=== PATIENT | female | born 1970 | race African-American/Black ===

== ENCOUNTER 2017-09-14 10:18 | Emergency (ER) | payer MEDICAID ==
[~2017-09-14] VITALS: Ht 157.5 cm; Wt 77.1 kg
[~2017-09-14 10:18] MED LIST: BENTYL10 MG ORAL; CIPRO500 MG PO; COLACE100 MG ORAL; FLAGYL500 MG ORAL; IBUPROFEN600 MG ORAL; NKM; TRAMADOL HCL50 MG ORAL; ZOFRAN4 M3 ORAL; ZOFRAN4 MG ORAL
[2017-09-14] MEDS ORDERED: HYDROCHLOROTH12.5 M2 ORAL (10:44)
[2017-09-14] MEDS ORDERED: PANTOPRAZOLE SO20 MG ORAL (10:44)
[2017-09-14] MEDS ORDERED: Mylanta II UD 30ml ORAL ONE (11:00)
[2017-09-14] MEDS ORDERED: Morphine Sulfate 4mg/ml Inj IVP ONE (11:00)
[2017-09-14] MEDS ORDERED: Dicyclomine HCl 10mg/5ml oral soln ORAL ONE (11:00)
[2017-09-14] MEDS ORDERED: Metoclopramide 10mg/2ml Inj IVP ONE (11:00)
[2017-09-14] MEDS ORDERED: Lidocaine 2% Visc 15ml soln ORAL ONE (11:00)
[2017-09-14] MEDS ORDERED: DiphenhydrAMINE 50mg/ml Inj IVP ONE (11:00)
[2017-09-14 11:22] LABS: MEAN CORPUSCULAR HEMOGLOBIN 33.8 PG (27.0-31.0); MEAN CORPUSCULAR HGB CONC 34.4 G/DL (32.0-36.0); MEAN CORPUSCULAR VOLUME 98 FL (80-99); MEAN PLATELET VOLUME 6.1 FL (6.5-10.1); PLATELET COUNT 324 K/UL (150-450); RED BLOOD COUNT 4.09 M/UL (4.20-5.40); RED CELL DISTRIBUTION WIDTH 11.7 % (11.6-14.8); WHITE BLOOD COUNT 20.1 K/UL (4.8-10.8)
[2017-09-14 11:22] LABS: APPEARANCE,URINE SLIGHTLY CLOUDY; KETONES,URINE 4+ (NEGATIVE); LEUKOCYTE ESTERASE ,URINE 1+ (NEGATIVE); NITRITE,URINE NEGATIVE (NEGATIVE); PH,URINE 6 (4.5-8.0); PROTEIN,URINE 3+ (NEGATIVE); UROBILINOGEN,URINE 1 MG/DL (0.0-1.0)
[2017-09-14 11:29] LABS: ICTOTEST NEGATIVE
[2017-09-14 11:44] LABS: ANION GAP 12 mmol/L (5-15); BAND NEUTROPHILS % (MANUAL) 0 % (0-8); BASOPHILS % (MANUAL) 0 % (0-2); CALCIUM 8.9 MG/DL (8.5-10.1); CARBON DIOXIDE 27 MMOL/L (21-32); CHLORIDE 96 MMOL/L (98-107); CREATININE 0.9 MG/DL (0.55-1.30); EOSINOPHILS % (MANUAL) 0 % (0-3); GLOMERULAR FILTRATION RATE > 60 mL/min (>60); LYMPHOCYTES % (MANUAL) 4 % (20-45); NEUTROPHILS % (MANUAL) 92 % (45-75); PLATELET ESTIMATE ADEQUATE; PLATELET MORPHOLOGY NORMAL; SODIUM 135 MMOL/L (136-145); TOTAL CELLS COUNTED 100
[2017-09-14 11:48] LABS: ALANINE AMINOTRANSFERASE 25 U/L (12-78); ASPARTATE AMINO TRANSFERASE 18 U/L (15-37); LIPASE 95 U/L (73-393); TOTAL PROTEIN 9.2 G/DL (6.4-8.2)
[2017-09-14 11:48] LABS: BACTERIA,URINE FEW /HPF; RBC,URINE 20-30 /HPF (0 - 2); SQUAMOUS EPITHELIAL CELL,UR MANY /LPF (NONE/OCC)
[2017-09-14 13:42] VITALS: BP 109/64
--- NOTE | 2017-09-14 14:06 | Emergency Room Report ---
History of Present Illness General Chief Complaint: Vomiting Source: Patient Present Illness HPI Patient presents with complaints of diffuse abdominal pain Nausea vomiting Patient reports that she was trying to see if the pain would get better over the past 7 days however has persisted Denies any obvious fevers Denies any chest pain or shortness of breath denies any dysuria frequency Patient reports that she has been getting diagnosed with IBS and has some blood work are ordered however she was not able to make it to the laboratory Patient denies any blood in the stool Patient has had previous appendectomy Cholecystectomy and hysterectomy Allergies: Coded Allergies: No Known Allergies (Verified , 11/10/11) Patient History Past Medical History: see triage record Pertinent Family History: none Reviewed Nursing Documentation: PMH: Agreed, PSxH: Agreed Nursing Documentation-PMH Hx Hypertension: Yes Hx Gastrointestinal Problems: Yes - IBS Review of Systems All Other Systems: negative except mentioned in HPI Physical Exam Vital Signs Date Time Temp Pulse Resp B/P (MAP) Pulse Ox O2 Delivery O2 Flow Rate FiO2 09/14/17 10:28 98.4 64 23 135/83 99 Room Air Sp02 EP Interpretation: reviewed, normal General Appearance: mild distress - Appeared uncomfortable Head: normocephalic, atraumatic Eyes: bilateral eye PERRL, bilateral eye EOMI ENT: hearing grossly normal, normal pharynx, TMs + canals normal, uvula midline Neck: full range of motion, supple, no meningismus, no bony tend Respiratory: lungs clear, normal breath sounds, no rhonchi, no respiratory distress, no retraction, no accessory muscle use Cardiovascular #1: normal peripheral pulses, regular rate, rhythm, no edema, no gallop, no JVD, no murmur Gastrointestinal: normal bowel sounds, non tender - Subjectively patient points diffusely however I cannot clinically localized pain,, soft, no mass, no organomegaly, non-distended, no guarding, no hernia, no pulsatile mass, no rebound Genitourinary: no CVA tenderness Musculoskeletal: normal inspection Neurologic: oriented x3, responsive, product line manager III-XII nml as tested, motor strength/ tone normal, sensory intact Psychiatric: mood/affect normal Skin: normal color, no rash, warm/dry, palpation normal Lymphatic: normal inspection, no adenopathy Medical Decision Making Diagnostic Impression: Primary Impression: Abdominal pain Additional Impression: Leukocytosis ER Course With the patient's history and examination, multiple differentials considered, including but not limited to , ectopic , ovarian torsion, gastritis, cholecystitis, pancreatitis, appendicitis Patient's test was negative At this time the white blood cell with significantly elevated Therefore patient had CT obtained No obvious pathology mild colitis Patient has done significantly better throughout her stay Given the laboratory findings and the patient's discomfort patient required inpatient care secondary to insurance purposes patient is transferred for continued eval Labs Test 09/14/17 11:00 09/14/17 11:10 Urine Color Yellow Urine Appearance Slightly cloudy Urine pH 6 (4.5-8.0) Urine Specific Ransom 1.025 (1.005-1.035) Urine Protein 3+ (NEGATIVE) Urine Glucose (UA) Negative (NEGATIVE) Urine Ketones 4+ (NEGATIVE) Urine Occult Blood 5+ (NEGATIVE) Urine Nitrite Negative (NEGATIVE) Urine Bilirubin 1+ (NEGATIVE) Urine Ictotest Negative Urine Urobilinogen 1 MG/DL (0.0-1.0) Urine Leukocyte Esterase 1+ (NEGATIVE) Urine RBC 20-30 /HPF (0 - 2) Urine WBC 2-4 /HPF (0 - 2) Urine Squamous Epithelial Cells Many /LPF (NONE/OCC) Urine Bacteria Few /HPF (NONE) Urine HCG, Qualitative Negative White Blood Count 20.1 K/UL (4.8-10.8) Red Blood Count 4.09 M/UL (4.20-5.40) Hemoglobin 13.8 G/DL (12.0-16.0) Hematocrit 40.2 % (37.0-47.0) Mean Corpuscular Volume 98 FL (80-99) Mean Corpuscular Hemoglobin 33.8 PG (27.0-31.0) Mean Corpuscular Hemoglobin Concent 34.4 G/DL (32.0-36.0) Red Cell Distribution Width 11.7 % (11.6-14.8) Platelet Count 324 K/UL (150-450) Mean Platelet Volume 6.1 FL (6.5-10.1) Neutrophils (%) (Auto) % (45.0-75.0) Lymphocytes (%) (Auto) % (20.0-45.0) Monocytes (%) (Auto) % (1.0-10.0) Eosinophils (%) (Auto) % (0.0-3.0) Basophils (%) (Auto) % (0.0-2.0) Differential Total Cells Counted 100 Neutrophils % (Manual) 92 % (45-75) Lymphocytes % (Manual) 4 % (20-45) Monocytes % (Manual) 4 % (1-10) Eosinophils % (Manual) 0 % (0-3) Basophils % (Manual) 0 % (0-2) Band Neutrophils 0 % (0-8) Platelet Estimate Adequate Platelet Morphology Normal Red Blood Cell Morphology Normal Sodium Level 135 MMOL/L (136-145) Potassium Level 3.0 MMOL/L (3.5-5.1) Chloride Level 96 MMOL/L (98-107) Carbon Dioxide Level 27 MMOL/L (21-32) Anion Gap 12 mmol/L (5-15) Blood Urea Nitrogen 16 mg/dL (7-18) Creatinine 0.9 MG/DL (0.55-1.30) Estimat Glomerular Filtration Rate > 60 mL/min (>60) Glucose Level 126 MG/DL (74-106) Calcium Level 8.9 MG/DL (8.5-10.1) Total Bilirubin 1.0 MG/DL (0.2-1.0) Aspartate Amino Transf (AST/SGOT) 18 U/L (15-37) Alanine Aminotransferase (ALT/SGPT) 25 U/L (12-78) Alkaline Phosphatase 97 U/L (46-116) Total Protein 9.2 G/DL (6.4-8.2) Albumin 4.5 G/DL (3.4-5.0) Globulin 4.7 g/dL Albumin/Globulin Ratio 1.0 (1.0-2.7) Lipase 95 U/L (73-393) CT/MRI/US Diagnostic Results CT/MRI/US Diagnostic Results : Impression CT abdomen pelvis: Pending final report, Preliminary report no acute disease Last Vital Signs Date Time Temp Pulse Resp B/P (MAP) Pulse Ox O2 Delivery O2 Flow Rate FiO2 09/14/17 13:42 98.7 72 18 109/64 100 Room Air Status: improved Disposition: XFER SHT-TRM HOSP Condition: Improved Referrals: [facility]ERR[facility] (PCP) LEONCIO DE LEON D.O. Sep 14, 2017 14:06
[2017-09-14 15:15] VITALS: BP 115/76
--- NOTE | 2017-09-15 08:47 | Diagnostic Imaging Report ---
Indication: Abdominal pain Technique: CT scan of the abdomen and pelvis was performed from the diaphragms to the symphysis pubis with intravenous contrast material only per specific request of the ordering physician.. 5 mm sections were generated. Axial, coronal, and sagittal images are presented. Dose: Total Dose Length Product - DLP [address] Dose Index - CTDIvol(s) 15.91 mGy. Automated exposure control was utilized for dose reduction. Comparison: 07/02/2013 Findings: The liver demonstrates mild dilatation of intrahepatic biliary ducts. The gallbladder surgically absent. Common bile duct is not dilated. The spleen is normal. Adrenal glands are unremarkable. The kidneys are normal. Aorta and inferior vena cava are normal caliber. Retroperitoneum is free of adenopathy. There is a clip in the right lower quadrant. The appendix is not identified. There is no inflammatory change in the right lower quadrant. The bladder is normal. Uterus is absent. There is 1.8 cm cyst in left ovary. Right ovary is not identified. Impression: Previous hysterectomy. Previous cholecystectomy. Probable absence of the appendix. Prominence of intrahepatic biliary ducts. This is likely secondary to the previous cholecystectomy. Common bile duct is not dilated. Left ovarian cyst measuring 1.8 cm. The above report is concordant with preliminary reading by [employer] . The CT scanner at [facility] is accredited by the [employer] and the scans are performed using protocols designed to limit radiation exposure to as low as reasonably achievable to attain images of sufficient resolution adequate for diagnostic evaluation.
== END 2017-09-14 15:15 | disposition short-term general hospital (02) ==
LOC: EMR 10:55 → CANBEDREQ 15:05 → EMR 15:15
DX: R10.9 Unspecified abdominal pain (principal); D72.829 Elevated white blood cell count, unspecified; R11.2 Nausea with vomiting, unspecified; Z90.49 Acquired absence of other specified parts of digestive tract; Z90.710 Acquired absence of both cervix and uterus; I10 Essential (primary) hypertension; K58.9 Irritable bowel syndrome, unspecified; N83.202 Unspecified ovarian cyst, left side
CPT/HCPCS: 36415; 74177; 80053; 81003; 81025; 83690; 85007; 85025; 96361; 96374; 96375; 99285; J1200; J2270; J2765; Q9967

== ENCOUNTER 2017-10-30 10:23 | Emergency (ER) | payer MEDICAID ==
[~2017-10-30] VITALS: Ht 157.5 cm; Wt 70.3 kg
[~2017-10-30 10:23] MED LIST changes: +HYDROCHLOROTH12.5 M2 ORAL; +PANTOPRAZOLE SO20 MG ORAL
[2017-10-30] MEDS ORDERED: Morphine Sulfate 4mg/ml Inj IVP ONE (12:15)
[2017-10-30 13:08] LABS: ANION GAP 11 mmol/L (5-15); BLOOD UREA NITROGEN 6 mg/dL (7-18); CALCIUM 9.6 MG/DL (8.5-10.1); CARBON DIOXIDE 26 MMOL/L (21-32); CHLORIDE 104 MMOL/L (98-107); CREATININE 0.7 MG/DL (0.55-1.30); SODIUM 141 MMOL/L (136-145)
[2017-10-30 13:23] LABS: HEMATOCRIT 35.1 % (37.0-47.0); HEMOGLOBIN 12.4 G/DL (12.0-16.0); MEAN CORPUSCULAR VOLUME 98 FL (80-99); PLATELET COUNT 286 K/UL (150-450); RED BLOOD COUNT 3.59 M/UL (4.20-5.40); RED CELL DISTRIBUTION WIDTH 12.3 % (11.6-14.8); WHITE BLOOD COUNT 9.6 K/UL (4.8-10.8)
[2017-10-30] MEDS ORDERED: ZOFRAN ODT4 MG ORAL (13:23)
[2017-10-30] MEDS ORDERED: BENTYL10 MG ORAL (13:23)
[2017-10-30 14:01] VITALS: BP 115/78
--- NOTE | 2017-10-31 08:19 | Emergency Room Report ---
History of Present Illness General Chief Complaint: Abdominal Pain Source: Patient Present Illness HPI Patient present with complaints of epigastric abdominal pain Patient reports that is the same pain that she's had on several occasions 05/01 pain Patient reports that she's had several bouts of vomiting Denies any lower abdominal pain denies any flank pain Denies any fevers or chills Patient provides history of recent followup with GI specialty Denies any recent travel Allergies: Coded Allergies: No Known Allergies (Verified , 11/10/11) Patient History Past Medical History: see triage record Pertinent Family History: none Last Menstrual Period: 5 years Reviewed Nursing Documentation: PMH: Agreed, PSxH: Agreed Nursing Documentation-PM Past Medical History: No History, Except For Hx Hypertension: Yes Hx Gastrointestinal Problems: Yes - IBS,GERD Review of Systems All Other Systems: negative except mentioned in HPI Physical Exam Vital Signs Date Time Temp Pulse Resp B/P (MAP) Pulse Ox O2 Delivery O2 Flow Rate FiO2 10/30/17 10:28 97.7 64 20 124/75 100 Room Air Sp02 EP Interpretation: reviewed, normal General Appearance: no apparent distress Head: normocephalic, atraumatic Eyes: bilateral eye PERRL, bilateral eye EOMI ENT: hearing grossly normal, normal pharynx, TMs + canals normal, uvula midline Neck: full range of motion, supple, no meningismus, no bony tend Respiratory: lungs clear, normal breath sounds, no rhonchi, no respiratory distress, no retraction, no accessory muscle use Cardiovascular #1: normal peripheral pulses, regular rate, rhythm, no edema, no gallop, no JVD, no murmur Gastrointestinal: normal bowel sounds, non tender - However subjectively points to the epigastric region, soft, no mass, no organomegaly, non-distended, no guarding, no hernia, no pulsatile mass, no rebound Genitourinary: no CVA tenderness Musculoskeletal: normal inspection Neurologic: oriented x3, responsive, seafood clerk III-XII nml as tested, motor strength/ tone normal, sensory intact Psychiatric: mood/affect normal Skin: normal color, no rash, warm/dry, palpation normal Lymphatic: normal inspection, no adenopathy Medical Decision Making Diagnostic Impression: Primary Impression: Abdominal pain ER Course With the patient's history and examination, multiple differentials considered, including but not limited to , ectopic , ovarian torsion, gastritis, cholecystitis, pancreatitis, appendicitis Baseline blood work are normal Patient has significant improvement with acute intervention There appears to be some chronicity to the acute presentation Patient had imaging done last presentation and one was not repeated today Patient reports close followup with GI specialty Labs Test 10/30/17 11:05 White Blood Count 9.6 K/UL (4.8-10.8) Red Blood Count 3.59 M/UL (4.20-5.40) Hemoglobin 12.4 G/DL (12.0-16.0) Hematocrit 35.1 % (37.0-47.0) Mean Corpuscular Volume 98 FL (80-99) Mean Corpuscular Hemoglobin 34.6 PG (27.0-31.0) Mean Corpuscular Hemoglobin Concent 35.4 G/DL (32.0-36.0) Red Cell Distribution Width 12.3 % (11.6-14.8) Platelet Count 286 K/UL (150-450) Mean Platelet Volume 5.8 FL (6.5-10.1) Neutrophils (%) (Auto) % (45.0-75.0) Lymphocytes (%) (Auto) % (20.0-45.0) Monocytes (%) (Auto) % (1.0-10.0) Eosinophils (%) (Auto) % (0.0-3.0) Basophils (%) (Auto) % (0.0-2.0) Differential Total Cells Counted 100 Neutrophils % (Manual) 86 % (45-75) Lymphocytes % (Manual) 5 % (20-45) Monocytes % (Manual) 8 % (1-10) Eosinophils % (Manual) 0 % (0-3) Basophils % (Manual) 0 % (0-2) Band Neutrophils 1 % (0-8) Platelet Estimate Adequate Platelet Morphology Normal Red Blood Cell Morphology Normal Urine HCG, Qualitative Negative Sodium Level 141 MMOL/L (136-145) Potassium Level 3.0 MMOL/L (3.5-5.1) Chloride Level 104 MMOL/L (98-107) Carbon Dioxide Level 26 MMOL/L (21-32) Anion Gap 11 mmol/L (5-15) Blood Urea Nitrogen 6 mg/dL (7-18) Creatinine 0.7 MG/DL (0.55-1.30) Estimat Glomerular Filtration Rate > 60 mL/min (>60) Glucose Level 134 MG/DL (74-106) Calcium Level 9.6 MG/DL (8.5-10.1) Last Vital Signs Date Time Temp Pulse Resp B/P (MAP) Pulse Ox O2 Delivery O2 Flow Rate FiO2 10/30/17 14:01 88 18 115/76 99 Room Air 10/30/17 14:01 98.0 Status: improved Disposition: HOME, SELF-CARE Condition: Improved Scripts Ondansetron Odt* (ZOFRAN ODT*) 4 Mg Tab.rapdis 4 MG ORAL Q6H Y for Nausea & Vomiting, #12 TAB 0 Refills Prov: LEONCIO DE LEON D.O. 10/30/17 Dicyclomine Hcl* (BENTYL*) 10 Mg Capsule 10 MG ORAL TID, #12 CAP Prov: LEONCIO DE LEON D.O. 10/30/17 Referrals: [facility] (PCP) Patient Instructions: Abdominal Pain, Adult Additional Instructions: Patient is provided with the discharge instructions notified to follow up with primary doctor in the next 2-3 days otherwise return to the er with any worsening symptoms. Please note that this report is being documented using [employer] technology. This can lead to erroneous entry secondary to incorrect interpretation by the dictating instrument. LEONCIO DE LEON D.O. Oct 31, 2017 08:19
== END 2017-10-30 14:04 | disposition home or self-care (01) ==
LOC: EMR 11:05
DX: R10.13 Epigastric pain (principal); I10 Essential (primary) hypertension; K21.9 Gastro-esophageal reflux disease without esophagitis
CPT/HCPCS: 36415; 80048; 81025; 85007; 85025; 96374; 96375; 99284; J2270; J2550

== ENCOUNTER 2017-11-30 22:13 | Emergency (ER) | payer MEDICAID ==
[~2017-11-30] VITALS: Ht 157.5 cm; Wt 68.0 kg
[~2017-11-30 22:13] MED LIST changes: +ZOFRAN ODT4 MG ORAL
[2017-11-30 22:35] VITALS: BP 145/94
[2017-11-30] MEDS ORDERED: Mylanta II UD 30ml ORAL ONE (22:45)
[2017-11-30] MEDS ORDERED: Pantoprazole Inj IV ONE (22:45)
[2017-11-30] MEDS ORDERED: Morphine Sulfate 4mg/ml Inj IVP ONE (22:45)
[2017-11-30 23:18] LABS: BASOPHILS % (AUTO) 0.7 % (0.0-2.0); HEMATOCRIT 45.5 % (37.0-47.0); HEMOGLOBIN 15.8 G/DL (12.0-16.0); LYMPHOCYTES % (AUTO) 14.2 % (20.0-45.0); MEAN CORPUSCULAR VOLUME 96 FL (80-99); MONOCYTES % (AUTO) 3.1 % (1.0-10.0); NEUTROPHILS % (AUTO) 82.1 % (45.0-75.0); PLATELET COUNT 354 K/UL (150-450); RED BLOOD COUNT 4.74 M/UL (4.20-5.40); RED CELL DISTRIBUTION WIDTH 12.2 % (11.6-14.8); WHITE BLOOD COUNT 9.8 K/UL (4.8-10.8)
[2017-11-30 23:35] VITALS: BP 140/91
[2017-11-30 23:37] LABS: ALANINE AMINOTRANSFERASE 23 U/L (12-78); ALBUMIN 4.6 G/DL (3.4-5.0); ALBUMIN/GLOBULIN RATIO 1.1 (1.0-2.7); ALKALINE PHOSPHATASE 64 U/L (46-116); ANION GAP 11 mmol/L (5-15); ASPARTATE AMINO TRANSFERASE 17 U/L (15-37); BILIRUBIN,TOTAL 0.9 MG/DL (0.2-1.0); BLOOD UREA NITROGEN 12 mg/dL (7-18); CALCIUM 10.2 MG/DL (8.5-10.1); CARBON DIOXIDE 32 MMOL/L (21-32); CHLORIDE 94 MMOL/L (98-107); CREATININE 0.9 MG/DL (0.55-1.30); SODIUM 136 MMOL/L (136-145)
[2017-11-30 23:51] LABS: POTASSIUM 2.3 MMOL/L (3.5-5.1)
[2017-12-01 00:17] LABS: BILIRUBIN, URINE NEGATIVE (NEGATIVE); GLUCOSE, URINE (UA) NEGATIVE (NEGATIVE); KETONES,URINE 4+ (NEGATIVE); LEUKOCYTE ESTERASE ,URINE 1+ (NEGATIVE); NITRITE,URINE NEGATIVE (NEGATIVE); PH,URINE 6.5 (4.5-8.0); PROTEIN,URINE 2+ (NEGATIVE); UROBILINOGEN,URINE 1 MG/DL (0.0-1.0)
[2017-12-01 00:33] LABS: APPEARANCE,URINE CLEAR; COLOR,URINE YELLOW
[2017-12-01 01:00] VITALS: BP 138/88
[2017-12-01] MEDS ORDERED: Morphine Sulfate 4mg/ml Inj IVP ONE (01:15)
[2017-12-01] MEDS ORDERED: HYDROCODON-ACE1 EA15 ORAL (01:41)
[2017-12-01] MEDS ORDERED: REGLAN10 M1 ORAL (01:41)
--- NOTE | 2017-12-01 01:41 | Emergency Room Report ---
History of Present Illness General Chief Complaint: Abdominal Pain Source: Patient Present Illness HPI Is a 47-year-old female with a history of severe gastritis/GERD. She was also recently diagnosed with ulcerative colitis. She presents with epigastric pain is been ongoing for last 2-3 days. Has nausea and vomiting. No diarrhea. Worse with eating. Similar symptom in the past. Pain is 9 out of 10. Vomiting is nonbloody and nonbilious. No fever or chills. Allergies: Coded Allergies: No Known Allergies (Verified , 11/10/11) Patient History Past Medical History: see triage record, old chart reviewed Past Surgical History: other Pertinent Family History: none Social History: Denies: smoking Last Menstrual Period: 5yrs ago, had hysterectomy Now: No Immunizations: other Reviewed Nursing Documentation: PMH: Agreed, PSxH: Agreed Nursing Documentation-PMH Hx Hypertension: Yes Hx Gastrointestinal Problems: Yes - IBS,GERD, ulcerative colitis Review of Systems Eye: Denies: eye pain, blurred vision ENT: Denies: ear pain, nose congestion, throat swelling Respiratory: Denies: cough, shortness of breath Cardiovascular: Denies: chest pain, palpitations Gastrointestinal: Reports: abdominal pain, nausea, vomiting, Denies: diarrhea Musculoskeletal: Denies: back pain, joint pain Skin: Denies: rash Neurological: Denies: headache, numbness Endocrine: Denies: increased thirst, increased urine Hematologic/Lymphatic: Denies: easy bruising All Other Systems: negative except mentioned in HPI Physical Exam Vital Signs Date Time Temp Pulse Resp B/P (MAP) Pulse Ox O2 Delivery O2 Flow Rate FiO2 11/30/17 22:23 99.3 61 18 145/94 98 Room Air 99.3 vitals normal Sp02 EP Interpretation: reviewed, normal General Appearance: well appearing, no apparent distress, alert Head: normocephalic, atraumatic Eyes: bilateral eye PERRL, bilateral eye EOMI ENT: hearing grossly normal, normal pharynx Neck: full range of motion, supple, no meningismus Respiratory: chest non-tender, lungs clear, normal breath sounds Cardiovascular #1: regular rate, rhythm, no murmur Gastrointestinal: normal bowel sounds, no mass, no organomegaly, no bruit, non- distended, tenderness - Epigastric Musculoskeletal: back normal, gait/station normal, normal range of motion Psychiatric: mood/affect normal Skin: warm/dry Medical Decision Making Diagnostic Impression: Primary Impression: Abdominal pain Additional Impressions: Dehydration Hypokalemia ER Course Patient with epigastric pain. This is similar to previous episodes. No evidence of acute abdomen. No evidence of obstruction. She felt better now. We'll discharge home. Lab Results Impression labs unremarkable Last Vital Signs Date Time Temp Pulse Resp B/P (MAP) Pulse Ox O2 Delivery O2 Flow Rate FiO2 12/01/17 01:22 99.3 11/30/17 23:35 66 16 140/91 99 Room Air Status: improved Disposition: HOME, SELF-CARE Condition: Stable Scripts Hydrocodone/Acetaminophen 5-325* (HYDROCODONE/ACETAMINOPHEN 5-325*) 1 Each Tablet 1 TAB ORAL Q6H Y for For Pain, #30 TAB 0 Refills Prov: KEYUR MEJIA M.D. 12/01/17 Metoclopramide Hcl* (REGLAN*) 10 Mg Tablet 10 MG ORAL THREE TIMES A DAY, #30 TAB Prov: KEYUR MEJIA M.D. 12/01/17 Referrals: [facility]REFERR[facility] (PCP) Patient Instructions: Abdominal Pain, Adult Additional Instructions: Follow-up with your doctor in 2-3 days. Return if symptom worsen. KEYUR MEJIA M.D. Dec 01, 2017 01:41
[2017-12-01 01:52] VITALS: BP 140/91
== END 2017-12-01 01:54 | disposition home or self-care (01) ==
LOC: EMR 22:41
DX: E86.0 Dehydration (principal); R10.13 Epigastric pain; E87.6 Hypokalemia; K58.9 Irritable bowel syndrome, unspecified; K21.9 Gastro-esophageal reflux disease without esophagitis; I10 Essential (primary) hypertension; Z90.710 Acquired absence of both cervix and uterus
CPT/HCPCS: 36415; 80053; 81003; 83690; 85025; 96361; 96374; 96375; 99284; C9113; J2270; J2405; J8499

== ENCOUNTER 2018-12-26 14:57 | Emergency (ER) | payer MEDICAID ==
[~2018-12-26] VITALS: Ht 157.5 cm; Wt 68.0 kg
[~2018-12-26 14:57] MED LIST changes: +HYDROCODON-ACE1 EA15 ORAL; +REGLAN10 M1 ORAL
--- NOTE | 2018-12-26 15:21 | NUR ---
ED Nurse Note: PT WALKED IN TO ER TODAY FROM HOME. AOX4. PT C/O LEFT LEG PAIN X 3 DAYS AGO. PT DENIES ANY RECENT TRAUMA OR INJURY. CIRCULATION AND SENSATION INTACT. FULL ROM OF EXTREMITY, CAP REFILL <3 SECONDS, 5/5 MUSCLE STRENGTH AND GAIT STEADY.
[2018-12-26 15:22] VITALS: BP 122/86
--- NOTE | 2018-12-26 15:26 | NUR ---
ED Nurse Note: XRAY AT BEDSIDE
--- NOTE | 2018-12-26 15:35 | Emergency Room Report ---
History of Present Illness General Chief Complaint: Pain Source: Patient, Medical Record Present Illness HPI 48-year-old female patient presents the ER complaining of left foot pain. Reports that the pain radiates up her leg to her calf and her lateral upper thigh. Reports sometimes the pain originates from her calf or her thigh. Denies back pain. Denies bowel or bladder incontinence. Denies history of diabetes. Denies history of blood clots. Denies recent travel or periods of immobilization. Denies history of cancer. Denies recent surgeries. Reports pain is worse at the beginning of the day when she first wakes up. Reports pain is on the bottom of her heel. Denies recent injury or accident. Denies redness or swelling. Denies other aggravating or relieving factors. States has not taking any pain medicine for relief of symptoms. Reports history of nerve injury in that foot from "a long time ago". Reports history of arthritis in her right knee and right shoulder, states has received cortisone shots in those joints. Allergies: Coded Allergies: No Known Allergies (Verified , 11/10/11) Patient History Past Medical History: see triage record Last Menstrual Period: N/A Now: No : 3 Para: 2 Reviewed Nursing Documentation: PMH: Agreed; PSxH: Agreed Nursing Documentation-PMH Hx Hypertension: Yes Hx Gastrointestinal Problems: Yes - IBS,GERD, ulcerative colitis Review of Systems All Other Systems: negative except mentioned in HPI Physical Exam Vital Signs Date Time Temp Pulse Resp B/P (MAP) Pulse Ox O2 Delivery O2 Flow Rate FiO2 12/26/18 15:01 98.8 76 18 119/87 96 Room Air Sp02 EP Interpretation: reviewed, normal General Appearance: well appearing, no apparent distress, alert, GCS 15, non- toxic Head: normocephalic, atraumatic Eyes: bilateral eye normal inspection, bilateral eye PERRL ENT: hearing grossly normal, normal pharynx, no angioedema, normal voice, uvula midline, moist mucus membranes Neck: full range of motion Respiratory: lungs clear, normal breath sounds, no rhonchi, no respiratory distress, no accessory muscle use, no wheezing, speaking full sentences Cardiovascular #1: regular rate, rhythm, no edema, normal capillary refill Cardiovascular #2: 2+ dorsalis pedis (R), 2+ dorsalis pedis (L) Musculoskeletal: back normal, digits/nails normal, gait/station normal, normal range of motion, non-tender, no calf tenderness, Tayla's Sign negative, other - No tenderness to palpation over bilateral malleoli, negative ankle drawer, NVI, refill less than 2 seconds Neurologic: alert, oriented x3, responsive, motor strength/tone normal, sensory intact Skin: no rash Medical Decision Making PA Attestation Dr. Leigh is my supervising Physician whom patient management has been discussed with. Diagnostic Impression: Primary Impression: Foot pain, left ER Course Pt. presents to the ED c/o left foot pain radiating up her leg times 3 days. Ddx considered but are not limited to sprain, strain, contusion, plantar fasciitis, peripheral neuropathy, DVT, fibromyalgia, cellulitis. Denies back pain, low suspicion for lumbar radiculopathy, does not require back x-ray at this time. Vital signs: are WNL, pt. is afebrile ER COURSE: Physical exam benign, subjective complaints of pain at left heel, left lateral calf distal to knee and left proximal thigh laterally however no tenderness to palpation, no ecchymosis, no erythema or edema, no palpable masses. Low suspicion for infection. Does not require antibiotics. Accu-Chek 112, low suspicion for diabetes, low suspicion for peripheral neuropathy. X-ray of the left foot shows no acute disease per the preliminary reading. Incidental finding of possible malleolus fracture. Patient denies ankle pain, no tenderness to palpation, low suspicion for fracture. Patient declined x-ray of ankle. Denies history of ankle fracture. Denies any recent injury or accident. Discuss results with the patient. Provided patient with copy of results. Instructed patient to followup with PCP and discuss results of report with patient, discuss need for further treatment and referral. Patient provided with a cane and El wrap the foot. Checked afterwards by me showing good alignment and neurovascularly intact. Venous duplex ultrasound of left lower extremity negative for DVT. Advised patient follow-up with primary care provider to discuss further treatment referral at that time. Reports pain symptoms improved while in the ER. Patient resting comfortably no acute distress, eating food. ER precautions given. Provided with contact information for locomotive firer and general surgeon. Follow-up with PCP and discuss further treatment referral. DISCHARGE: At this time pt is stable for d/c to home. Patient is resting comfortably, in no acute distress, nontoxic appearing, talking without difficulty. Patient to take medications as instructed Will provide with patient care instructions and any necessary prescriptions. Care plan and follow-up instructions provided. Patient instructed to follow-up with primary care provider in 3 - 5 days. Patient questions asked and answered. Patient reports understanding and agreement to treatment plan. ER precautions given. Patient instructed to return to ER immediately for any new or worsening of symptoms including but not limited to increasing SOB, persistent fever, chest pain, intractable vomiting. - Please note that this Emergency Department Report was dictated using [employer] System[employer] developer technology software, occasionally this can lead to erroneous entry secondary to interpretation by the dictation equipment. Other X-Ray Diagnostic Results Other X-Ray Diagnostic Results : X-Ray ordered: Left foot # of Views/Limited Vs Complete: 3 View Indication: Pain EP Interpretation: Yes PA Xray: Interpretation reviewed, by supervising MD, and agrees with findings. Interpretation: no dislocation, no soft tissue swelling, no fractures Impression: No acute disease NALINI Scribwilda Text Daniel Dempsey PA-C CT/MRI/US Diagnostic Results CT/MRI/US Diagnostic Results : Imaging Test Ordered: Venous duplex ultrasound left lower limb Impression Negative for DVT Last Vital Signs Date Time Temp Pulse Resp B/P (MAP) Pulse Ox O2 Delivery O2 Flow Rate FiO2 12/26/18 15:22 98.7 74 17 122/86 98 Room Air Status: improved Disposition: HOME, SELF-CARE Condition: Stable Scripts Acetaminophen* (TYLENOL EXTRA STRENGTH*) 500 Mg Tablet 500 MG ORAL Q8H PRN for Prn Headache/Temp > 101, #30 TAB 0 Refills Prov: Enrike Dempsey PMartha 12/26/18 Patient Instructions: Flat Feet, Foot Contusion, [id number], Leg Cramps, Muscle Cramps and Spasms, Veey-[id number], Plantar Fasciitis, Rheumatoid Arthritis , [id number] Additional Instructions: Patient instructed to follow up with primary care provider and discuss further referral to orthopedics/physical therapy/pain management as needed. Follow-up with locomotive firer. Advised on arch support for shoes. If unable to followup with PCP, followup with orthopedic urgent care in 5-7 days , call to schedule appointment. Patient instructed on RICE method: rest, ice, compression, elevation. Patient instructed to WBAT. Discussed need for referral to vascular specialist. Take medications as directed. Patient questions asked and answered. ER precautions given, patient instructed to return to ER immediately for any new or worsening of symptoms. [facility] [address] [place], [address] [email or web address] Enrike Dempsey Dec 26, 2018 15:35
--- NOTE | 2018-12-26 16:45 | Diagnostic Imaging Report ---
EXAM: XR Left Foot Complete, 3 or More Views CLINICAL HISTORY: PAIN TECHNIQUE: Frontal, lateral and oblique views of the left foot. COMPARISON: No relevant prior studies available. FINDINGS: Bones/joints: Question of a malleolar tip fracture on the lateral radiograph. Ankle radiographs could further assess. No foot fracture is identified. No dislocation. Soft tissues: Unremarkable. No radiopaque foreign body. IMPRESSION: Question of a malleolar tip fracture on the lateral radiograph. Ankle radiographs could further assess. No foot fracture is identified. No dislocation.
--- NOTE | 2018-12-26 18:00 | NUR ---
ED Nurse Note: PT DOWN TO US VIA WHEELCHAIR.
--- NOTE | 2018-12-26 19:03 | NUR ---
ED Nurse Note: PT BACK FROM US VIA WHEELCHAIR.
--- NOTE | 2018-12-26 19:07 | NUR ---
ED Nurse Note: REPORT GIVEN TO SEGUN FISHMAN.
--- NOTE | 2018-12-26 19:08 | NUR ---
ED Nurse Note: Received report from Tony/SEGUN. Pt is A/O X 4. C/O left leg pain. Thomas continue to monitor.
[2018-12-26] MEDS ORDERED: TYLENOL EXTRA500 MG ORAL (19:17)
--- NOTE | 2018-12-26 19:19 | NUR ---
ER DISCHARGE NOTE: Patient is cleared to be discharged per Enrike Dempsey/NALINI. Pt is A/O x4 on room air with stable vital signs. Pt was given D/C and prescription instructions and pt was able to verbalize understanding. Pt's ID band removed. pt is able to ambulate with steady gait. pt took cane and all belongings.
--- NOTE | 2018-12-26 19:22 | Diagnostic Imaging Report ---
EXAM: US Duplex Left Lower Extremity Veins CLINICAL HISTORY: PAIN TECHNIQUE: Real-time duplex ultrasound scan of the left lower extremity veins integrating B-mode two-dimensional vascular structure, Doppler spectral analysis, color flow Doppler imaging and compression. COMPARISON: No relevant prior studies available. FINDINGS: Deep veins: Unremarkable. No DVT in the visualized common femoral, femoral, proximal deep femoral or popliteal veins. The veins demonstrate normal color flow, are normally compressible, with normal phasic flow and/or augmentation response. Superficial veins: Unremarkable. No thrombus in the visualized great saphenous vein. Soft tissues: No acute findings. No popliteal cyst. IMPRESSION: Normal left lower extremity duplex venous ultrasound.
[2018-12-26 19:25] VITALS: BP 125/82
== END 2018-12-26 19:25 | disposition home or self-care (01) ==
LOC: EMR 15:41
DX: M79.672 Pain in left foot (principal); I10 Essential (primary) hypertension; K21.9 Gastro-esophageal reflux disease without esophagitis; Z87.19 Personal history of other diseases of the digestive system
CPT/HCPCS: 93971; 99284

== ENCOUNTER 2020-01-23 18:59 | Emergency (ER) | payer MEDICAID ==
[~2020-01-23] VITALS: Ht 157.5 cm; Wt 77.1 kg
[~2020-01-23 18:59] MED LIST changes: +TYLENOL EXTRA500 MG ORAL
--- NOTE | 2020-01-23 19:20 | NUR ---
ED Nurse Note: Recieved pt in room sitting in chair, pt here with c/o chest pain and mid epigastric pain, tp states she has gerd and pain from it, pt denies chest pain but mid epigastric pain at 6/10, no sob or labored breathing, will resume care as ordered and continue to closely monitor.
[2020-01-23] MEDS ORDERED: Dicyclomine HCl 10mg/5ml oral soln ORAL ONE (19:30)
[2020-01-23] MEDS ORDERED: Lidocaine 2% Visc 15ml soln ORAL ONE (19:30)
[2020-01-23] MEDS ORDERED: Mylanta II UD 30ml ORAL ONE (19:30)
--- NOTE | 2020-01-23 20:03 | Diagnostic Imaging Report ---
EXAM: XR Chest, 1 View CLINICAL HISTORY: ABD PAIN TECHNIQUE: Frontal view of the chest. COMPARISON: Chest x-ray 02/28/2009 FINDINGS: Lungs: Unremarkable. No consolidation. Pleural space: No pleural effusion. No pneumothorax. Heart: Unremarkable. No cardiomegaly. IMPRESSION: No acute cardiopulmonary abnormality.
[2020-01-23 20:23] LABS: EOSINOPHILS % (AUTO) 3.9 % (0.0-3.0); HEMATOCRIT 38.5 % (37.0-47.0); HEMOGLOBIN 12.4 G/DL (12.0-16.0); LYMPHOCYTES % (AUTO) 26.5 % (20.0-45.0); MEAN CORPUSCULAR VOLUME 97 FL (80-99); MONOCYTES % (AUTO) 5.2 % (1.0-10.0); NEUTROPHILS % (AUTO) 63.4 % (45.0-75.0); PLATELET COUNT 241 K/UL (150-450); RED BLOOD COUNT 3.96 M/UL (4.20-5.40); WHITE BLOOD COUNT 6.4 K/UL (4.8-10.8)
[2020-01-23 20:34] LABS: ANION GAP 6 mmol/L (5-15); BLOOD UREA NITROGEN 10 mg/dL (7-18); CALCIUM 9.6 MG/DL (8.5-10.1); CARBON DIOXIDE 30 MMOL/L (21-32); CHLORIDE 104 MMOL/L (98-107); CREATININE 0.8 MG/DL (0.55-1.30); POTASSIUM 3.6 MMOL/L (3.5-5.1); SODIUM 140 MMOL/L (136-145)
[2020-01-23 20:39] LABS: ALANINE AMINOTRANSFERASE 34 U/L (12-78); ALBUMIN 4.2 G/DL (3.4-5.0); ALBUMIN/GLOBULIN RATIO 1.1 (1.0-2.7); ALKALINE PHOSPHATASE 107 U/L (46-116); ASPARTATE AMINO TRANSFERASE 21 U/L (15-37); BILIRUBIN,TOTAL 0.7 MG/DL (0.2-1.0)
[2020-01-23] MEDS ORDERED: PANTOPRAZOLE SO20 MG ORAL ×2 (20:51→21:14)
[2020-01-23 21:00] VITALS: BP 140/78
--- NOTE | 2020-01-23 21:05 | NUR ---
ER DISCHARGE NOTE: Patient is cleared to be discharged per ERMD, pt is aox4, on room air, with stable vital signs. pt was given dc and prescription instructions, pt was able to verbalize understanding, pt id band and iv site removed without complications. pt is able to ambulate with steady gait. pt took all belongings.
[2020-01-23 21:15] VITALS: BP 140/78
--- NOTE | 2020-01-23 22:36 | Emergency Room Report ---
History of Present Illness General Chief Complaint: Upper Respiratory Illness Source: Patient Present Illness HPI 49-year-old female presents ED complaining of chest pain. Describes burning sensation in her chest. 5 out of 10, nonradiating. States she has acid reflux and it feels the same however she is having some sweats and some neck pain so she was concerned about her heart. Denies any shortness of breath. Denies any fevers or chills. Denies nausea or vomiting. No other aggravating relieving factors. Denies any other associated symptoms Allergies: Coded Allergies: No Known Allergies (Verified , 11/10/11) COVID-19 Screening Contact w/high risk pt: No Recent Travel to affected area: No Experienced COVID-19 symptoms?: Yes COVID-19 symptoms experienced: Cough Patient History Past Medical History: GERD Past Surgical History: none Pertinent Family History: none Social History: Denies: smoking, alcohol use, drug use Last Menstrual Period: hyst Now: No Immunizations: UTD Reviewed Nursing Documentation: PMH: Agreed; PSxH: Agreed Nursing Documentation-PMH Past Medical History: No History, Except For Hx Hypertension: Yes Hx Gastrointestinal Problems: Yes - IBS,GERD, ulcerative colitis Review of Systems All Other Systems: negative except mentioned in HPI Physical Exam Vital Signs Date Time Temp Pulse Resp B/P (MAP) Pulse Ox O2 Delivery O2 Flow Rate FiO2 01/23/20 19:04 98.2 67 18 151/82 (105) 95 Room Air Sp02 EP Interpretation: reviewed, normal General Appearance: no apparent distress, alert, GCS 15, non-toxic Head: normocephalic, atraumatic Eyes: bilateral eye normal inspection, bilateral eye PERRL ENT: hearing grossly normal, normal pharynx, no angioedema, normal voice Neck: full range of motion, supple/symm/no masses Respiratory: chest non-tender, lungs clear, normal breath sounds, speaking full sentences Cardiovascular #1: regular rate, rhythm, no edema Cardiovascular #2: 2+ carotid (R), 2+ carotid (L), 2+ radial (R), 2+ radial (L) , 2+ dorsalis pedis (R), 2+ dorsalis pedis (L) Gastrointestinal: normal bowel sounds, non tender, soft, non-distended, no guarding, no rebound Rectal: deferred Genitourinary: normal inspection, no CVA tenderness Musculoskeletal: back normal, normal range of motion, gait/station normal, non- tender Neurologic: alert, motor strength/tone normal, oriented x3, sensory intact, responsive, speech normal Psychiatric: judgement/insight normal, memory normal, mood/affect normal, no suicidal/homicidal ideation Reflexes: 3+ bicep (R), 3+ bicep (L), 3+ tricep (R), 3+ tricep (L), 3+ knee (R) , 3+ knee (L) Lymphatic: no adenopathy Medical Decision Making Diagnostic Impression: Primary Impression: Chest pain Qualified Codes: R07.9 - Chest pain, unspecified Additional Impression: GERD (gastroesophageal reflux disease) Qualified Codes: K21.9 - Gastro-esophageal reflux disease without esophagitis ER Course Hospital Course 49-year-old F presents ED complaining of chest pain Differential diagnoses include: Rib fracture, AK/unstable angina, contusion, muscle strain Clinical course Patient placed on stretcher. After initial history and physical I ordered labs , EKG, chest x-ray. labs reviewed- all electrolytes normal, troponins negative, no leukocytosis, hemoglobin/hematocrit stable EKG - NSR no acute ischemic changes interpreted by me Chest x-ray-no cardiomegaly, no rib fracture, no pneumothorax, no acute process I discussed findings with patient. Likely her GERD. Troponin negative. EKG unremarkable. Vitals stable. Safe for discharge for close outpatient follow- up. Patient would benefit from outpatient GI evaluation. States she has an appointment next week. Given Pepcid here. Will discharge on Protonix. I. I feel this is a highly complex case requiring extensive working including EKG/Rhythm strip, Xray/CT/US, Blood/urine lab work, repeat exams while in ED, and administration of strong opiates/narcotics for pain control, admission to hospital or close patient follow up. Diagnosis - chest pain, GERD Stable and discharged to home with Rx Protonix. Instructed to followup with PMD /GI. Return to ED if symptoms recur or worsen Labs Test 01/23/20 20:05 White Blood Count 6.4 K/UL (4.8-10.8) Red Blood Count 3.96 M/UL (4.20-5.40) Hemoglobin 12.4 G/DL (12.0-16.0) Hematocrit 38.5 % (37.0-47.0) Mean Corpuscular Volume 97 FL (80-99) Mean Corpuscular Hemoglobin 31.2 PG (27.0-31.0) Mean Corpuscular Hemoglobin Concent 32.1 G/DL (32.0-36.0) Red Cell Distribution Width 14.0 % (11.6-14.8) Platelet Count 241 K/UL (150-450) Mean Platelet Volume 7.1 FL (6.5-10.1) Neutrophils (%) (Auto) 63.4 % (45.0-75.0) Lymphocytes (%) (Auto) 26.5 % (20.0-45.0) Monocytes (%) (Auto) 5.2 % (1.0-10.0) Eosinophils (%) (Auto) 3.9 % (0.0-3.0) Basophils (%) (Auto) 1.0 % (0.0-2.0) Sodium Level 140 MMOL/L (136-145) Potassium Level 3.6 MMOL/L (3.5-5.1) Chloride Level 104 MMOL/L (98-107) Carbon Dioxide Level 30 MMOL/L (21-32) Anion Gap 6 mmol/L (5-15) Blood Urea Nitrogen 10 mg/dL (7-18) Creatinine 0.8 MG/DL (0.55-1.30) Estimat Glomerular Filtration Rate > 60 mL/min (>60) Glucose Level 98 MG/DL (74-106) Calcium Level 9.6 MG/DL (8.5-10.1) Total Bilirubin 0.7 MG/DL (0.2-1.0) Aspartate Amino Transf (AST/SGOT) 21 U/L (15-37) Alanine Aminotransferase (ALT/SGPT) 34 U/L (12-78) Alkaline Phosphatase 107 U/L (46-116) Troponin I 0.000 ng/mL (0.000-0.056) Total Protein 7.9 G/DL (6.4-8.2) Albumin 4.2 G/DL (3.4-5.0) Globulin 3.7 g/dL Albumin/Globulin Ratio 1.1 (1.0-2.7) Lipase 88 U/L (73-393) EKG Diagnostic Results Rate: normal Rhythm: NSR ST Segments: no acute changes ASA given to the pt in ED: No Rhythm Strip Diag. Results EP Interpretation: yes Rhythm: NSR, no PVC's, no ectopy Chest X-Ray Diagnostic Results Chest X-Ray Diagnostic Results : Chest X-Ray Ordered: Yes # of Views/Limited/Complete: 1 View Indication: Chest Pain EP Interpretation: Yes Interpretation: no consolidation, no effusion, no pneumothorax, no acute cardiopulmonary disease Impression: No acute disease Electronically Signed by: Electronically signed by Los Rosas MD Last Vital Signs Date Time Temp Pulse Resp B/P (MAP) Pulse Ox O2 Delivery O2 Flow Rate FiO2 01/23/20 21:15 98.4 76 16 140/78 97 Room Air Status: improved Disposition: HOME, SELF-CARE Condition: Improved Scripts Pantoprazole (PANTOPRAZOLE) 20 Mg Tablet.dr 40 MG ORAL DAILY, #10 TAB 0 Refills Prov: Los Rosas MD 01/23/20 Patient Instructions: Nonspecific Chest Pain, [id number], Gastritis, Adult, [id number] Los Rosas MD January 23, 2020 22:36
== END 2020-01-23 21:15 | disposition home or self-care (01) ==
LOC: EMR 19:25
DX: R07.9 Chest pain, unspecified (principal); K21.9 Gastro-esophageal reflux disease without esophagitis; K58.9 Irritable bowel syndrome, unspecified
CPT/HCPCS: 36415; 71045; 80053; 83690; 84484; 85025; 93005; 96374; S0028; Z7502; 99284